=== PATIENT | male | born 1955 | race African-American/Black ===

== ENCOUNTER 2018-06-30 13:17 | Emergency (ER) | payer OTHER ==
[~2018-06-30] VITALS: Ht 190.5 cm; Wt 99.8 kg
--- NOTE | ~2018-06-30 | EKG ---
[address] [address] ELECTROCARDIOGRAM REPORT Name: FILIPE BRANHAM Room #: [facility]#: [id number] Admission: 06/30/18 Attend Phys: Discharge: 06/30/18 Date of : 55 Report #: [id number] THIS REPORT FOR: //name// [facility] ED Test Date: 2018-06-30 Test Time: 14:01:45 Pat Name: FILIPE YONAS Department: Room: Gender: M Reconciliation Coordinator: xena : 1955 Requested By: Natalya Palomares Order Number: [id number] MD: Daniel Cheung Measurements Intervals [place] Rate: 78 P: 52 MO: 159 QRS: -74 QRSD: 95 T: 51 QT: 368 QTc: 420 Interpretive Statements Sinus rhythm Abnormal R-wave progression, late transition Inferior infarct, old Compared to ECG 02/06/2012 15:50:03 Myocardial infarct finding now present Sinus tachycardia no longer present Left-axis deviation no longer present Electronically Signed On 07-01-2018 9:03:54 CDT by Daniel Cheung [email or web address] <ELECTRONICALLY SIGNED> By: Daniel Cheung MD 07/01/18 0903 1401 1401 Daniel Cheung MD /EPI
[~2018-06-30 13:17] MED LIST: ACETAMINOPHEN325 M1 PO; ARICEPT10 MG PO; ATIVAN2 MG PO; BENZTROPINE ME0.5 MG PO; CLONAZEPAM 1 MG1 M1 PO; EUCERIN CREME57 GM TOP; FLOMAX PO; GLUCOPHAGE1000 MG PO; HALOPERIDOL 5 MG5 MG PO; IBUPROFEN 800800 M1 PO; LAMISIL AF113 GM; MOM PO; MYLANTA 12 OZ355 M1; PRINIVIL20 MG PO; PROVERA10 MG PO; RISPERDAL M-TAB4 MG PO; SEROQUEL XR400 M1 PO; TESSALON200 MG PO; [UNRECOGNIZED DRUG - OTHER] TOP
[2018-06-30 13:56] LABS: URINE BILIRUBIN NEGATIVE (Negative); URINE BLOOD NEGATIVE (Negative); URINE CLARITY CLEAR; URINE COLOR YELLOW; URINE GLUCOSE-RANDOM* NEGATIVE (Negative); URINE KETONES TRACE (Negative); URINE LEUKOCYTES-REFLEX NEGATIVE (Negative); URINE NITRITE-REFLEX NEGATIVE (Negative); URINE PROTEIN (DIPSTICK) NEGATIVE (Negative); URINE SPECIFIC GRAVITY 1.015 (1.005-1.035); URINE UROBILINOGEN 0.2 E.U./dl (0.2-1.0)
[2018-06-30 14:08] LABS: ABSOLUTE NEUTROPHILS 3.8 thou/uL (1.4-8.2); BASOPHILS 0.3 % (0.0-2.0); EOSINOPHILS 0.8 % (0.0-3.0); HEMATOCRIT 37.7 % (42.0-52.0); HEMOGLOBIN 12.7 gm/dL (14.0-18.0); LYMPHOCYTES 27.9 % (24.0-44.0); MCH 30.6 pg (26.0-34.0); MCHC 33.8 g/dL (28.0-37.0); MCV 90.6 fL (80.0-100.0); MONOCYTES 10.9 % (1.0-8.0); PLATELET COUNT 307 thou/uL (150-400); POLYS 60.1 % (36.0-66.0); RBC 4.16 mil/uL (4.50-6.00); RDW 13.5 % (10.5-14.5); WBC 6.3 thou/uL (4.0-11.0)
[2018-06-30 14:19] LABS: ANION GAP 7 mmol/L (7-16); BUN 4 mg/dL (7-18); CALCIUM 9.3 mg/dL (8.5-10.1); CHLORIDE 100 mmol/L (98-107); CO2 26 mmol/L (21-32); CREATININE 0.9 mg/dL (0.7-1.3); GLUCOSE 123 mg/dL (74-106); POTASSIUM 3.9 mmol/L (3.5-5.1); SODIUM 133 mmol/L (136-145)
[2018-06-30 14:28] LABS: ALBUMIN 3.3 g/dL (3.4-5.0); LIPASE 98 U/L (73-393); SGOT 43 U/L (15-37); SGPT 33 U/L (30-65); TOTAL BILIRUBIN 0.3 mg/dL (<0.1-1.0); TOTAL PROTEIN 7.9 g/dL (6.4-8.2); TROPONIN-I <0.06 ng/mL (<0.06)
[2018-06-30] MEDS ORDERED: PEPCID20 MG PO (17:21)
[2018-06-30] MEDS ORDERED: MULTIVITAMINS1 EAC7 PO (17:22)
[2018-06-30] MEDS ORDERED: METFORMIN HCL500 MG PO (17:23)
[2018-06-30] MEDS ORDERED: MIRALAX17 GM PO (17:23)
[2018-06-30] MEDS ORDERED: NUEDEXTA 20-101 EACH PO (17:23)
[2018-06-30] MEDS ORDERED: GABAPENTIN 100100 MG PO (17:24)
[2018-06-30] MEDS ORDERED: POTASSIUM20 PO (17:24)
[2018-06-30] MEDS ORDERED: ARICEPT 5 MG TAB5 MG PO (17:25)
[2018-06-30] MEDS ORDERED: DEPAKOTE ER500 MG PO (17:25)
[2018-06-30] MEDS ORDERED: COLACE100 MG PO (17:25)
[2018-06-30] MEDS ORDERED: XALATAN2.5 ML OPHTHALMIC (17:26)
[2018-06-30] MEDS ORDERED: MEDROXYPROGESTER5 GM MC (17:27)
[2018-06-30 19:24] VITALS: BP 119/64
== END 2018-06-30 19:36 | disposition home or self-care (01) ==
LOC: ER 13:17
PROVIDERS: Nurse Practitioner Family
DX: R10.84 Generalized abdominal pain (principal); N32.89 Other specified disorders of bladder; R51 Headache; R19.7 Diarrhea, unspecified; I10 Essential (primary) hypertension; E78.5 Hyperlipidemia, unspecified; F20.9 Schizophrenia, unspecified